=== PATIENT | male | born 1995 | race American Indian/Alaskan Native ===

== ENCOUNTER 2018-06-17 07:59 | Emergency (ER) | payer OTHER ==
[2018-06-17 08:09] VITALS: BP 128/76
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
--- NOTE | 2018-06-17 09:14 | XRay Report ---
BILATERAL HANDS, 3 VIEWS: History: Trauma, pain, swelling. The bony architecture is intact. Bony alignment is normal. No soft tissue abnormalities are seen. The joint spaces appear preserved. Correlate for chronic healed fracture of the right fifth metacarpal neck. IMPRESSION: Unremarkable bilateral hands. Question chronic injury to the right fifth metacarpal.
[2018-06-17] MEDS ORDERED: TRIPLE ANTIBIOTIC TP ONE (09:19)
[2018-06-17] MEDS ORDERED: BOOSTRIX IM ONE (09:19)
[2018-06-17] MEDS ORDERED: MOTRIN PO ONE (09:19)
[2018-06-17] MEDS ORDERED: PERCOCET 5/325 PO ONE (09:44)
== END 2018-06-17 10:26 | disposition home or self-care (01) ==
LOC: ED 07:59
DX: S60.222A Contusion of left hand, initial encounter (principal); S60.00XA Contusion of unspecified finger without damage to nail, initial encounter; S60.411A Abrasion of left index finger, initial encounter; S60.413A Abrasion of left middle finger, initial encounter; S60.415A Abrasion of left ring finger, initial encounter; S60.417A Abrasion of left little finger, initial encounter; S69.91XA Unspecified injury of right wrist, hand and finger(s), initial encounter; F17.200 Nicotine dependence, unspecified, uncomplicated; W22.01XA Walked into wall, initial encounter; Y93.89 Activity, other specified; Y92.89 Other specified places as the place of occurrence of the external cause; Y99.8 Other external cause status
CPT/HCPCS: 90471; 90715; 99283; A6250

== ENCOUNTER 2021-12-29 13:21 | Emergency (ER) | payer SELFPAY ==
[2021-12-29] MEDS ORDERED: TETANUS,DIPH,PERTUSS(ACELL) VACCINE 0.5 ML SYRINGE IM ONE (13:28)
--- NOTE | 2021-12-29 13:29 | Emergency Department Report ---
ED Animal Bite HPI - General Chief Complaint: Animal Bite Stated Complaint: DOG BITE Time Seen by Provider: 12/29/21 13:27 Source: patient Mode of arrival: Ambulatory Limitations: No Limitations - History of Present Illness Initial Comments: Patient was brought in by ambulance secondary to a dog bite. He was playing video games. His girlfriend's mother's dog attacked him. This was a pitbull. He was bitten on the right elbow. He states that that really is not bothering him. He was also bitten in the right ear and that is the issue. A portion of his ear was pulled off. EMS did bring this portion with him. This occurred about 30 minutes prior to arrival. Patient states that he does not know the dog's history. He does not know if the dog's shots are up-to-date. He states that he was just playing video games. He states that this was an unprovoked attack. He does not know when his last tetanus shot occurred. - Related Data Previous Rx's Medication Instructions Recorded Last Taken Type Ibuprofen [Motrin] 600 mg PO Q8H PRN #15 tablet 06/17/18 Unknown Rx Ondansetron [Zofran Odt] 4 mg PO TID PRN #8 tab.rapdis 10/11/18 Unknown Rx Amoxicillin/Potassium Clav 1 each PO BID #20 tab 12/29/21 Unknown Rx [Augmentin 875-125 Tablet] HYDROcodone/APAP 5-325 [Cornwall 1 each PO Q6HR PRN #12 tablet 12/29/21 Unknown Rx 5/325] Allergies Allergy/AdvReac Type Severity Reaction Status Date / Time No Known Allergies Allergy Unverified 06/17/18 08:08 ED Review of Systems ROS: Stated complaint: DOG BITE Other details as noted in HPI Comment: All other systems reviewed and negative Constitutional: denies: fever Eyes: denies: eye pain ENT: as per HPI Respiratory: denies: cough Cardiovascular: denies: chest pain Endocrine: denies: unexplained weight loss Gastrointestinal: denies: abdominal pain Genitourinary: denies: dysuria Musculoskeletal: denies: back pain Skin: denies: rash Neurological: denies: headache Hematological/Lymphatic: denies: easy bruising ED Past Medical Hx - Past Medical History Previous Medical History?: No - Surgical History Past Surgical History?: No - Family History Family history: no significant - Social History Smoking Status: Current Every Day Smoker Substance Use Type: Alcohol - Medications Home Medications: Home Medications Medication Instructions Recorded Confirmed Last Taken Type Ibuprofen [Motrin] 600 mg PO Q8H PRN #15 tablet 06/17/18 Unknown Rx Ondansetron [Zofran Odt] 4 mg PO TID PRN #8 tab.rapdis 10/11/18 Unknown Rx Amoxicillin/Potassium Clav 1 each PO BID #20 tab 12/29/21 Unknown Rx [Augmentin 875-125 Tablet] HYDROcodone/APAP 5-325 [Cornwall 1 each PO Q6HR PRN #12 tablet 12/29/21 Unknown Rx 5/325] ED Physical Exam - General Limitations: No Limitations, Other (Pulse ox noted and normal) General appearance: alert, in no apparent distress - Head Head exam: Present: normocephalic, other (A portion of the right ear has been a avulsed) - Eye Eye exam: Present: normal appearance, EOMI. Absent: scleral icterus - ENT ENT exam: Present: normal orophraynx, other (The lower 25% of the patient's right ear has been a avulsed. There is exposed cartilage inferior and posterior noted. Tragus is intact. There is skin avulsion from the superior aspect of the pinna.) - Neck Neck exam: Present: normal inspection. Absent: meningismus - Respiratory Respiratory exam: Present: normal lung sounds bilaterally. Absent: respiratory distress - Cardiovascular Cardiovascular Exam: Present: normal rhythm, tachycardia - GI/Abdominal GI/Abdominal exam: Present: soft - Extremities Exam Extremities exam: Present: normal capillary refill, other (Patient has 2 small puncture wounds to the lateral aspect of the right elbow area. There is no tenderness or effusion. There is good range of motion.) - Back Exam Back exam: Present: full ROM - Neurological Exam Neurological exam: Present: alert, oriented X3, CN II-XII intact, normal gait. Absent: motor sensory deficit - Psychiatric Psychiatric exam: Present: normal affect, normal mood - Skin Skin exam: Present: warm, dry ED Course Vital Signs 12/29/21 13:24 Pulse Rate 101 H Respiratory 16 Rate Blood Pressure 164/84 [Left] O2 Sat by Pulse 99 Oximetry - Reevaluation(s) Reevaluation #1: 12/29/21 13:29 Antibiotics were ordered. We will call plastic surgery at [facility] to discuss the case. Reevaluation #2: 12/29/21 14:03 Case was discussed with plastic surgery at [facility]. They agree that wet-to-dry dressings and outpatient follow-up for plastic reconstruction would be appropriate. We have agreed upon antibiotic therapy. Patient can be discharged with outpatient follow-up. Reevaluation #3: 12/29/21 14:05 Medical decision making: Patient presented with a dog bite to the right elbow which was superficial and required local cleaning. There was a dog bite to the right ear with tissue loss. This exposed cartilage and skin. There was no indication to reattach the portion of the ear that had been a avulsed. Patient will be placed on antibiotics. He has been given Ancef here in the IV. Patient will be referred for outpatient evaluation and follow-up. He does not appear to be septic or toxic. There is no other facial dog bite that requires suture repair. Critical Care Time: No Critical care attestation.: If time is entered above; I have spent that time in minutes in the direct care of this critically ill patient, excluding procedure time. ED Disposition Clinical Impression: Open wound of right ear due to dog bite, Open wound of right elbow due to dog bite Disposition: 01 HOME / SELF CARE / HOMELESS Is pt being admited?: No Condition: Stable Instructions: Animal Bite, Adult, [id number] Additional Instructions: Use wet-to-dry dressing changes as demonstrated here in the emergency department. Take all the antibiotics. Follow-up with your primary care physician. Call plastic surgery at [facility] for also follow-up or any other plastic surgeon. Prescriptions: Amoxicillin/Potassium Clav [Augmentin 875-125 Tablet] 1 each PO BID #20 tab HYDROcodone/APAP 5-325 [Cornwall 5/325] 1 each PO Q6HR PRN #12 tablet PRN Reason: Pain Referrals: PRIMARY CARE, [Referring] - 3-5 Days NICOLÁS DAMIAN MD [Staff Physician] - 3-5 Days ANETA CLEMENTS MD [Staff Physician] - 3-5 Days
[2021-12-29 14:52] VITALS: BP 138/68
== END 2021-12-29 14:52 | disposition home or self-care (01) ==
LOC: ED 13:21
DX: S01.351A Open bite of right ear, initial encounter (principal); S51.051A Open bite, right elbow, initial encounter; F17.200 Nicotine dependence, unspecified, uncomplicated; W54.0XXA Bitten by dog, initial encounter; Y93.89 Activity, other specified; Y92.89 Other specified places as the place of occurrence of the external cause; Y99.8 Other external cause status
CPT/HCPCS: 90471; 90715; 96365; 99283; J0690